=== PATIENT | male | born 1960 | race Caucasian/White ===

== ENCOUNTER 2017-07-22 19:57 | Emergency (ER) | payer OTHER, MEDICAID ==
[2017-07-22 19:57] VITALS: O2SAT 99
[2017-07-22] MEDS ORDERED: IOHEXOL 350 MG/ML 10 ML VIAL (for RAD DIAG) IVCONTRAST ONE (20:12)
[2017-07-22 20:30] VITALS: BP 137/82; PULSE 94; RESP 24; O2SAT 95
[2017-07-22 20:31] LABS: AUTOMATED NEUTROPHIL # 4.6 TH/MM3 (1.8-7.7); BASOPHIL # 0.1 TH/MM3 (0-0.2); BASOPHIL % 0.6 % (0.0-2.0); EOSINOPHIL # 0.2 TH/MM3 (0-0.4); EOSINOPHIL % 2.4 % (0.0-4.0); HEMATOCRIT 48.6 % (39.0-51.0); HEMOGLOBIN 16.7 GM/DL (13.0-17.0); INTERNATIONAL NORMALIZED RATIO 1.1 RATIO; LYMPH % 32.3 % (9.0-44.0); LYMPHOCYTE # 2.7 TH/MM3 (1.0-4.8); MEAN CELL VOLUME 86.3 FL (80.0-100.0); MEAN CORPUSCULAR HEMOGLOBIN 29.6 PG (27.0-34.0); MEAN CORPUSCULAR HGB CONC 34.3 % (32.0-36.0); MEAN PLATELET VOLUME 10.4 FL (7.0-11.0); MONO % 9.8 % (0.0-8.0); MONOCYTE # 0.8 TH/MM3 (0-0.9); NEUT % 54.9 % (16.0-70.0); PLATELET COUNT 187 TH/MM3 (150-450); PROTHROMBIN TIME - PATIENT 10.8 SEC (9.8-11.6); RED BLOOD COUNT 5.63 MIL/MM3 (4.50-5.90); RED CELL DISTRIBUTION WIDTH 14.3 % (11.6-17.2); WHITE BLOOD COUNT 8.4 TH/MM3 (4.0-11.0)
[2017-07-22 21:00] VITALS: BP 131/81; PULSE 90; RESP 24; O2SAT 96
[2017-07-22] MEDS ORDERED: ONDANSETRON HCL 4 MG/2 ML VIAL IV PUSH ONE (21:00)
[2017-07-22] MEDS ORDERED: SODIUM CHLOR 0.9% 1000 ML INJ 1,000 ML IV ONE (21:00)
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
[2017-07-22] MEDS ORDERED: ONDANSETRON ODT 4 MG TAB PO ONE (21:15)
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
[2017-07-22] MEDS ORDERED: DIPHTH/TETANUS/ACEL PERTUSSIS (BOOSTER) 0.5 ML VIAL/PFS IM ONE (21:44)
[2017-07-22 22:00] VITALS: BP 135/80; PULSE 94; RESP 26; O2SAT 97
[2017-07-22 23:00] VITALS: BP 133/81; PULSE 96; RESP 24; O2SAT 97
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
[2017-07-23] MEDS ORDERED: BACITRACIN TOP OINT 15 GM TUBE TOPICAL ONE (01:00)
[2017-07-23 03:00] VITALS: BP 112/71; PULSE 88; RESP 16; O2SAT 98
[2017-07-23 08:00] VITALS: BP 127/77; PULSE 83; RESP 16; O2SAT 97
== END 2017-07-23 09:36 | disposition home or self-care (01) ==
LOC: EDBD 19:57 → NEPI 19:57 → NEPE 07-23 09:36
DX: S20.212A Contusion of left front wall of thorax, initial encounter (principal); S41.112A Laceration without foreign body of left upper arm, initial encounter; V49.9XXA Car occupant (driver) (passenger) injured in unspecified traffic accident, initial encounter; Y92.411 Interstate highway as the place of occurrence of the external cause; Z23 Encounter for immunization; Z21 Asymptomatic human immunodeficiency virus [HIV] infection status; Z88.0 Allergy status to penicillin
CPT/HCPCS: 70450; 70486; 71045; 71260; 72125; 72170; 74177; 80048; 85025; 85610; 85730; 86850; 86900; 86901; 90471; 90715; 96360; 99285; J7030; Q9967